=== PATIENT | male | born 2000 | race Caucasian/White ===

== ENCOUNTER 2023-10-10 18:39 | Emergency (ER) | payer BC, SELFPAY ==
[2023-10-10 18:44] VITALS: BP 138/72
--- NOTE | 2023-10-10 18:54 | ED.MUSCINJ ---
HPI-Injury
General
Chief Complaint: Musculo-Skeletal Complaint
Source: patient
Exam Limitations: none
Time Seen by Provider: 10/10/23 18:52
Nursing documentation reviewed up to this point in time: agreed with
Travel History
Have you had any contact with someone who has COVID-19?: No
Do you have any symptoms of coronavirus? Fever > 100 degrees, chills, cough, shortness of breath, sore throat, loss of taste or smell, muscle aches, or headache?: No
History of Present Illness-Injury
Initial Injury comments:
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
Past History
Past History
ED Past Medical History: None
ED Past Surgical History: Tonsilectomy
Social History
Tobacco: Non-smoker
Alcohol: None
Personal: Single
Employment: Student
Review of Systems
Review of Systems
Allergies reviewed?: Yes
All Other Systems: ROS reviewed and negative except as documented in HPI and ROS
Musculoskeletal: Reports other (Pain right hand)
Musculoskeletal Injury Exam
Musculoskeletal Injury Exam
Right hand along fifth metacarpal:
Pain with Movement?: Moderate
Tender to palpation?: Moderate
Soft tissue swelling?: Mild
Contusion?: Moderate
Range of motion: Full
Distal skin color and temperature: normal-warm & good color
Capillary Refill: normal
Normal distal neurovascular exam?: Yes
Phy Exam
Physical Exam
Physical Exam:
PHYSICAL EXAMINATION:
General: no apparent distress, not acutely ill
Neuro: alert and oriented.
Psychiatric: well kept. interactive and cooperative
Musculoskeletal: Moves with ease
Skin: Warm, pink.
Injury Course
Orders/Labs/Results
Orders:
Orders
10/10/23 18:46
Hand, Right 3 View [CR Hand - Right Min 3 Views] Urgent
Comment:
Reason For Exam: HIT BY BASEBALL; PREVIOUS FX IN SAME AREA
10/10/23 19:33
Juan M Wrap Right-Treatment ONCE
MDM/Problems Addressed
Differential Diagnosis Includes:
fracture, contusion
MDM/Problems Addressed:
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
7:31 PM
Right hand x-ray read initially by this examiner, shows no fracture
Juan M wrap applied
*Critical Care Note
Total Time (30-74mins, 75-104mins- exclusive of procedures): Not Applicable
ED Attending Note
-
Portions of this chart may have been created with voice recognition software.� Occasional wrong word or��sound alike� substitutions may have occurred due to the inherent limitations of voice recognition software.
Discharge Plan
Departure
Patient Disposition: Home (Routine Discharge)
Date of Disposition: 10/10/23
Time of Disposition: 19:31
Patient with high blood pressure during this ER visit?: No
Condition: Good
Discharge Problem:
Contusion of right hand
Instructions: Contusion (DC), Using Cold for Pain
Referrals:
Uli Mendoza MD [Active] - As needed
Activity Restrictions/Additional Instructions:
As we discussed, your x-ray shows nothing is broken.
Wear the Juan M wrap as needed for comfort and swelling.
Cool compress to the area 20 minutes off and on today and tomorrow
Ibuprofen 600 mg, with food, every 6 hours as needed for pain.
Interventions
Interventions:
*Risk Screen - Suicide Last Done: 10/10/23 18:44
*Neglect/Abuse Screening Last Done: 04/14/24 18:44
Discharge Date and Time
Print Language: ESTONIAN
== END 2023-10-10 21:17 | disposition home or self-care (01) ==
LOC: EMR 18:39
PROVIDERS: EMERGENCY PHYSICIAN Student in an Organized Health Care Education/Training Program
DX: S60.221A Contusion of right hand, initial encounter (principal); W21.03XA Struck by baseball, initial encounter
CPT/HCPCS: 99283; 73130